=== PATIENT | male | born 1955 | race Caucasian/White ===

== ENCOUNTER 2019-11-20 11:31 | Outpatient (CLI) | payer OTHER ==
[2019-11-20 12:49] LABS: Basophils # (Auto) 0.1 K/mm3 (0.0-0.1); Basophils % (Auto) 2.1 % (0.0-1.8); Eosinophils # (Auto) 0.2 K/mm3 (0.0-0.4); Eosinophils % (Auto) 3.8 % (0.0-4.3); Hematocrit 43.6 % (35.5-45.6); Hemoglobin 14.9 gm/dl (11.8-15.2); Lymphocytes # (Auto) 1.2 K/mm3 (1.2-5.4); Lymphocytes % (Auto) 26.4 % (13.4-35.0); Mean Corpuscular HGB Conc 34 % (32-34); Mean Corpuscular Volume 88 fl (84-94); Monocytes # (Auto) 0.3 K/mm3 (0.0-0.8); Monocytes % (Auto) 7.3 % (0.0-7.3); Platelet Count 376 K/mm3 (140-440); Red Blood Count 4.95 M/mm3 (3.65-5.03); Red Cell Distribution Width 13.7 % (13.2-15.2)
[2019-11-20 13:04] LABS: Alanine Aminotransferase 15 units/L (7-56); Albumin 4.6 g/dL (3.9-5); BUN/Creatinine Ratio 15; Blood Urea Nitrogen 16 mg/dL (9-20); Calcium 9.4 mg/dL (8.4-10.2); Chol/HDL Ratio 5.89 %; HDL Cholesterol 28 mg/dL (40-59); Hemolysis Index 5; LDL Cholesterol,Direct TNR mg/dL (50-130)
[2019-11-20 13:09] LABS: Bilirubin,Urine NEG (Negative); Blood,Urine NEG (Negative); Color,Urine Yellow (Yellow); Urobilinogen,Urine < 2.0 mg/dL (<2.0)
[2019-11-20 13:12] LABS: Creatinine,Urine 122.6 mg/dL (0.1-20.0); Microalbumin/Creatinine Ratio 67.6 ug/mg
[2019-11-23 16:41] LABS: Vitamin D, 25-OH, D2 <4 ng/mL
== END 2019-11-20 11:32 | disposition home or self-care (01) ==
LOC: LAB 11:31
PROVIDERS: ATTEND Internal Medicine
DX: Z13.29 Encounter for screening for other suspected endocrine disorder (principal); Z13.21 Encounter for screening for nutritional disorder; Z00.00 Encounter for general adult medical examination without abnormal findings; E11.65 Type 2 diabetes mellitus with hyperglycemia; E78.5 Hyperlipidemia, unspecified
CPT/HCPCS: 36415; 80053; 80061; 81001; 82043; 82306; 82607; 83036; 84443; 85025

== ENCOUNTER 2021-12-15 14:51 | Outpatient (CLI) | payer MEDICARE ==
--- NOTE | 2021-12-15 16:54 | XRay Report ---
CHEST 2 VIEWS INDICATION / CLINICAL INFORMATION: ACUTE COUGH R05.1 STUDY TIME: 1524 COMPARISON: 05/03/2016 FINDINGS: SUPPORT DEVICES: None. HEART / MEDIASTINUM: No significant abnormality. LUNGS / PLEURA: No significant acute pulmonary or pleural abnormality. No pneumothorax. ADDITIONAL FINDINGS: No significant additional findings. Signer Name: Misbah Land MD Signed: 12/15/2021 4:50 PM Workstation Name: [id number]
== END 2021-12-15 14:52 | disposition home or self-care (01) ==
LOC: XRAY 14:51
PROVIDERS: ATTEND Internal Medicine
DX: R05.1 Acute cough (principal)
CPT/HCPCS: 71046